=== PATIENT | female | born 1960 | race Caucasian/White ===

== ENCOUNTER 2019-06-23 07:08 | Day surgery (SDC) | payer OTHER ==
[~2019-06-23] VITALS: Ht 157.5 cm; Wt 63.0 kg
[2019-06-23] MEDS ORDERED: fentaNYL 0.05 MG/ML VIAL ONE (08:28)
[2019-06-23] MEDS ORDERED: LIDOCAINE 2% 100 MG/5 ML UJET TP ONE (08:28)
[2019-06-23] MEDS ORDERED: fentaNYL 0.05 MG/ML VIAL IVP ONE (09:10)
== END 2019-06-23 09:44 | disposition home or self-care (01) ==
LOC: MOR 07:08 → MMU 07:09 → MOR 09:44
PROVIDERS: ATTEND Internal Medicine Gastroenterology
DX: Z12.11 Encounter for screening for malignant neoplasm of colon (principal); K64.8 Other hemorrhoids; K64.4 Residual hemorrhoidal skin tags; I10 Essential (primary) hypertension; Z93.3 Colostomy status; Z80.0 Family history of malignant neoplasm of digestive organs; Z79.899 Other long term (current) drug therapy; Z90.49 Acquired absence of other specified parts of digestive tract; Z98.51 Tubal ligation status
CPT/HCPCS: 45378; J3010